=== PATIENT | male | born 1955 | race Caucasian/White ===

== ENCOUNTER 2019-12-14 13:39 | Emergency (ER) | payer BC, MEDICARE ==
[~2019-12-14] VITALS: Ht 177.8 cm; Wt 86.0 kg
--- NOTE | 2019-12-14 13:58 | NUR ---
pt was rock climbing today when he began to experience tingling in his arms first then his numbness and tingling in his feet that progressed to his waist. pt presented to ed axox4 and breathing fast and shallow. skin was cold to the touch. pt denies any medical hx, fever, chills, sob, cough, cp. pt states otherwise healthy individual here with friends from the [place].
[2019-12-14] MEDS ORDERED: SODIUM CHLORIDE 0.9% 1,000ML IVBOLUS ONE ×2 (14:00→15:30)
[2019-12-14] MEDS ORDERED: SODIUM CHLORIDE FLUSH 10ML SYR IVF ONE (14:00)
[2019-12-14] MEDS ORDERED: ASPIRIN 81 MG TABLET CHEW PO ONE (14:00)
[2019-12-14 14:09] LABS: BASOPHILS # (AUTO) 0.03 x10^3/uL (0-0.1); BASOPHILS % (AUTO) 0 % (0-1); EOSINOPHILS % (AUTO) 0 % (1-7); LYMPHOCYTES # (AUTO) 1.22 x10^3/uL (1-3.4); LYMPHOCYTES % (AUTO) 11 % (22-44); MD NO; MEAN CORPUSCULAR HGB CONC 32.5 g/dL (33.2-36.2); MEAN CORPUSCULAR VOLUME 95.5 fL (81-97); MEAN PLATELET VOLUME 8.4 fL (7.4-10.4); MONOCYTES # (AUTO) 0.68 x10^3/uL (0.2-0.8); MONOCYTES % (AUTO) 6 % (2-9); NEUTROPHILS # (AUTO) 8.77 x10^3/uL (1.8-6.8); NEUTROPHILS % (AUTO) 82 % (42-75); PLATELET COUNT 229 x10^3/uL (130-400); RED BLOOD COUNT 4.39 x10^6/uL (4.38-5.82); RED CELL DISTRIBUTION WIDTH 12.8 % (9.4-14.8)
--- NOTE | 2019-12-14 14:14 | NUR ---
pt moved to room 13
[2019-12-14 14:15] LABS: ALBUMIN 3.7 g/dL (3.4-5.0); ANION GAP 12 mmol/L (5-15); CALCIUM 8.7 mg/dL (8.5-10.1); CHLORIDE 112 mmol/L (98-107); CREATININE 1.32 mg/dL (0.7-1.3)
[2019-12-14] MEDS ORDERED: ASPIRIN 81 MG TABLET CHEW ONE (14:18)
[2019-12-14 14:19] LABS: TROPONIN I < 0.015 ng/mL (0.000-0.045)
--- NOTE | 2019-12-14 14:22 | NUR ---
RECEIVED BEDSIDE REPORT FROM ELISABETH ROSA. PT RESTING ON GURNEY. PT FRIEND BEDSIDE, BUT LEFT PHONE NUMBER FOR WHEN HE LEAVES.
--- NOTE | 2019-12-14 15:02 | NUR ---
PT STATES "I FEEL BETTER. LESS NAUSEOUS. I DIDN'T THINK ANYTHING BAD WAS GOING ON, BUT WHEN I FELT THE TINGLING IN MY LEGS AND HANDS, I JUST DIDN'T KNOW." PT A&OX4. PT CONVERSING WITH NO COMPLICATIONS. NADN. NO OTHER NEEDS REQUESTED AT THIS TIME.
[2019-12-14] MEDS ORDERED: ONDANSETRON 2MG/ML, 2ML ONE (15:05)
[2019-12-14] MEDS ORDERED: ONDANSETRON 2MG/ML, 2ML IVPush ONE (15:30)
--- NOTE | 2019-12-14 15:30 | NUR ---
"MY NAUSEA IS DEFINITELY BETTER. AND THE TINGLING IN MY HANDS AND FEET IS MUCH BETTER. I ALMOST WANT TO SAY I'M OK, BUT I'M STILL A LITTLE WEAK" NADN. NO OTHER NEEDS REQUESTED AT THIS TIME.
[2019-12-14 16:15] VITALS: BP 130/81
--- NOTE | 2019-12-14 16:15 | NUR ---
PT RESTING ON GUJOS[place] MIGUEL. NADN. NO C/O CP "THERE IS A TINY LITTLE BIT OF TINGLING IN MY TOES AND FINGER TIPS. JUST A TINY BIT."
--- NOTE | 2019-12-14 16:35 | NUR ---
LATE ENTRY FOR 1620: PT AMBULATORY WITH STEADY GAIT TO BATHROOM.
--- NOTE | 2019-12-14 16:36 | NUR ---
Patient/Caregiver given discharge instructions and they have confirmed that they understand the instructions. Patient ambulatory with steady gait. PT LEFT WITH ALL PERSONAL BELONGINGS. PT WITH FRIEND.
== END 2019-12-14 16:39 | disposition home or self-care (01) ==
LOC: ED 15:37
DX: R55 Syncope and collapse (principal); R20.2 Paresthesia of skin; R06.00 Dyspnea, unspecified; R42 Dizziness and giddiness; R11.2 Nausea with vomiting, unspecified; R07.89 Other chest pain; R94.31 Abnormal electrocardiogram [ECG] [EKG]
CPT/HCPCS: 36415; 71045; 80048; 82040; 83880; 84484; 85025; 93005; 96361; 96374; 99285; J2405; J7030